=== PATIENT | male | born 1975 | race Hispanic/Latino ===

== ENCOUNTER 2018-12-31 17:59 | Observation (INO) | payer BC ==
[~2018-12-31] VITALS: Ht 153.7 cm; Wt 89.4 kg
[~2018-12-31 17:59] MED LIST: LOVASTATIN10 MG PO
[2018-12-31 19:06] LABS: HEMATOCRIT 45.9 % (38.2-49.6); HEMOGLOBIN 15.2 g/dL (14.0-18.0); RED BLOOD COUNT 5.27 x10e6/uL (4.3-5.7)
[2018-12-31 19:07] LABS: EOSINOPHILS % 0.3 % (0.0-6.0); LYMPHOCYTES % 2.6 % (18.0-39.1); MEAN CORPUSCULAR HEMOGLOBIN 28.8 pg (28-32); MEAN CORPUSCULAR HGB CONC 33.1 g/dL (31-35); MEAN CORPUSCULAR VOLUME 87.1 fL (81-99); MONOCYTES % 0.7 % (4.4-11.3); NEUTROPHILS % 4.7 % (38.7-80.0); PLATELET COUNT 246 x10e3/uL (140-360); RED CELL DISTRIBUTION WIDTH 12.4 % (11.7-14.4)
[2018-12-31 19:08] LABS: BILIRUBIN,URINE NEGATIVE (NEGATIVE); CLARITY,URINE CLEAR (CLEAR); COLOR,URINE YELLOW (YELLOW); KETONES,URINE NEGATIVE (NEGATIVE); LEUKOCYTE ESTERASE ,URINE NEGATIVE (NEGATIVE); NITRITE,URINE NEGATIVE (NEGATIVE); PROTEIN,URINE DIPSTICK NEGATIVE (NEGATIVE); URINE UROBILINOGEN 0.2 mg/dL (0.2 - 1)
[2018-12-31 19:18] LABS: INR 0.87; PARTIAL THROMBOPLASTIN TIME 32.3 seconds (23.8-35.5); PROTHROMBIN TIME 12.3 seconds (11.9-14.5)
[2018-12-31 19:19] LABS: EPITHELIAL CELLS,URINE RARE /LPF
[2018-12-31 19:23] LABS: BLOOD UREA NITROGEN 14 mg/dL (7-26); BUN/CREATININE RATIO 18 (6-25); CARBON DIOXIDE 27 mmol/L (22-29); CHLORIDE 100 mmol/L (98-107); CREATININE, SERUM 0.77 mg/dL (0.72-1.25); EST GLOMERULAR FILTRATION RATE > 60 ML/MIN (60-); GLUCOSE 103 mg/dL (74-118); SODIUM 141 mmol/L (136-145)
[2018-12-31 19:24] LABS: ALANINE AMINOTRANSFERASE 29 IU/L (0-55); ALBUMIN 4.2 g/dL (3.5-5.0); ALBUMIN/GLOBULIN RATIO 0.9 (0.8-2.0); ALKALINE PHOSPHATASE 82 IU/L (40-150)
--- NOTE | 2018-12-31 21:42 | Diagnostic Imaging Report ---
CT Abdomen And Pelvis with Intravenous Contrast INDICATION: Cholecystectomy 12/18/2018, abdominal pain ^AB PAIN POST OP CHOLEY TECHNIQUE: Thin collimation axial images obtained from the diaphragm to the level of the pubic symphysis following the uneventful administration of 100 cc of low osmolar, nonionic intravenous contrast. Dose reduction techniques used: Automated exposure control, adjustment of the mAs and/or kVp according to patient size, standardized low-dose protocol, and/or iterative reconstruction technique. RADIATION DOSE: Total DLP: 497.14 mGy*cm Estimated effective dose: (DLP x 0.015 x size factor) mSv CTDIvol has been reviewed. It is below the limits set by the Radiation Protocol Committee (RPC). COMPARISON: None. ABDOMEN FINDINGS: Lung Bases: Bibasilar subsegmental atelectasis. Punctate calcified granuloma in the posterior right lower lobe. No pleural effusions. Small hiatal hernia. Liver: Steatosis. No evidence for mass. Gallbladder: Absent. No fluid collection in the gallbladder fossa. No biliary ductal dilatation. Pancreas: Normal attenuation without mass or ductal dilatation. Spleen: Normal in size. No evidence of mass.. Adrenal Glands: No evidence for mass. Kidneys: Right: Normal enhancement. No soft tissue mass. No hydronephrosis. Left: Normal enhancement. No soft tissue mass. No hydronephrosis. Lymph Nodes: No enlarged abdominal or retroperitoneal lymph nodes. Aorta: Normal morphology PELVIS FINDINGS: Bowel: Stomach: Normal. Small Bowel: Several small bowel loops in the lower pelvis in the right lower quadrant contain semisolid enteric contents but are not dilated. The remainder of the small bowel is normal. Large Bowel: Normal in caliber with normal wall thickness. Appendix: Distended to a diameter of 11.5 mm. There is mild mucosal hyperemia. No surrounding inflammation or fluid collection. Bladder: Normal. No free fluid or fluid collection. No free air Bones: Unremarkable. Soft tissues: No soft tissue mass, inflammation, or hernia. Muscle bundles are normal in appearance. IMPRESSION: 1. Distended appendix suggestive of early acute appendicitis. Please correlate with clinical exam findings. No evidence of perforation. Semisolid enteric contents in adjacent small bowel loops may be the result of reactive ileus. 2. Cholecystectomy. Normal biliary tree. 3. Steatosis. Signed by: Dr. Gasper Hernandez MD on 12/31/2018 9:38 PM
[2018-12-31] MEDS ORDERED: PIPER-TAZ 3.375 GM 50 ML IV STA (22:06)
[2018-12-31] MEDS ORDERED: CEFTRIAXONE SOD 2 GM/NS 100 ML 100 ML IV ONE (22:15)
[2018-12-31] MEDS ORDERED: MORPHINE SULFATE 2 MG/ML SYR 1ML IV PRN (22:30)
[2018-12-31] MEDS ORDERED: CEFTRIAXONE SOD 2 GM/NS 100 ML 100 ML IV SCH ×2 (22:30→22:45)
--- OUTSIDE RECORDS SUMMARY | 2018-12-31 23:05 | XMS REPORT ---
Author Author [facility] Address Unknown Phone Unavailable Care Team Providers Care Sales Floor Team Member Name Role Phone Mukesh CALZADA Unavailable Unavailable Problems This patient has no known problems. Allergies, Adverse Reactions, Alerts This patient has no known allergies or adverse reactions. Medications This patient has no known medications. Results Test Description Test Time Test Comments Text Results Atomic Results Result Comments CT ABDOMEN/PELVIS W 2018-12-31 21:32:00 [place] [address] Patient Name: WILLIAM BOLDEN MR #: [id number] : 1975 Age/Sex: 43/M Req #: [id number] Adm Physician: Ordered by: SHRUTHI CALZADA MD Report #: [id number] Location: ER Room/Bed: Procedure: [id number] CT/CT ABDOMEN/PELVIS W Exam Date: Exam Time: REPORT STATUS: Signed CT Abdomen And Pelvis with Intravenous Contrast INDICATION: Cholecystectomy 12/18/2018, abdominal pain AB PAIN POST OP CHOLEY TECHNIQUE: Thin collimation axial images obtained from the diaphragm to the level of the pubic symphysis following the uneventful administration of 100 cc of low osmolar, nonionic intravenous contrast. Dose reduction techniques used: Automated exposure control, adjustment of the mAs and/or kVp according to patient size, standardized low-dose protocol, and/or iterative reconstruction technique. RADIATION DOSE: Total DLP: 497.14 mGy*cm Estimated effective dose: (DLP x 0.015 x size factor) mSv CTDIvol has been reviewed. It is below the limits set by the Radiation Protocol Committee (RPC). COMPARISON: None. ABDOMEN FINDINGS: Lung Bases: Bibasilar subsegmental atelectasis. Punctate calcified granuloma in the posterior right lower lobe. No pleural effusions. Small hiatal hernia. Liver: Steatosis. No evidence for mass. Gallbladder: Absent. No fluid col lection in the gallbladder fossa. No biliary ductal dilatation. Pancreas: Normal attenuation without mass or ductal dilatation. Spleen: Normal in size. No evidence of mass.. Adrenal Glands: No evidence for mass. Kidneys: Right: Normal enhancement. No soft tissue mass. No hydronephrosis. Left: Normal enhancement. No soft tissue mass. No hydronephrosis. Lymph Nodes: No enlarged abdominal or retroperitoneal lymph nodes. Aorta: Normal morphology PELVIS FINDINGS: Bowel: Stomach: Normal. Small Bowel: Several small bowel loops in the lower pelvis in the right lower quadrant contain semisolid enteric contents but are not dilated. The remainder of the small bowel is normal. Large Bowel: Normal in caliber with normal wall thickness. Appendix: Distended to a diameter of 11.5 mm. There is mild mucosal hyperemia. No surrounding inflammation or fluid collection. Bladder: Normal. No free fluid or fluid collection. No fr ee air Bones: Unremarkable. Soft tissues: No soft tissue mass, inflammation, or hernia. Muscle bundles are normal in appearance. IMPRESSION: 1. Distended appendix suggestive of early acute appendicitis. Please correlate with clinical exam findings. No evidence of perforation. Semisolid enteric contents in adjacent small bowel loops may be the result of reactive ileus. 2. Cholecystectomy. Normal biliary tree. 3. Steatosis. Signed by: Dr. Elizabeth Hernandez MD on 12/31/2018 9:38 PM Dictated By: ELIZABETH HERNANDEZ MD 37 Transcribed By: HILARIO on 12/31/182137 COPY TO: SHRUTHI CALZADA MD
[2018-12-31] MEDS ORDERED: MORPHINE SULFATE INJ 4 MG/ML INJ 1ML ONE (23:23)
[2018-12-31] MEDS ORDERED: SODIUM CHLORIDE 0.9% 100 ML ONE (23:23)
[2018-12-31] MEDS ORDERED: CEFTRIAXONE SOD 2 GM VIAL ONE (23:23)
[2018-12-31] MEDS: SODIUM CHLORIDE 0.9% 1000ML 1,000 ML IV SCH (23:28)
[2018-12-31] MEDS: ONDANSETRON HCL INJ 2MG/ML 2ML 2 MG/ML VIAL IV PRN (23:32)
[2018-12-31] MEDS: METRONIDAZOLE 500MG/NS 100ML IV SCH (23:50)
[2019-01-01] VITALS (9 sets, daily range): BP systolic 103–131; BP diastolic 70–79
[2019-01-01] MEDS ORDERED: IOPAMIDOL 370 MG/ML 200 ML INFUS..BTL INJ ONE (00:38)
[2019-01-01] MEDS ORDERED: SODIUM CHLORIDE 0.9% 50ML 50 ML ONE (00:38)
--- NOTE | 2019-01-01 01:20 | NUR ---
obtained consent form for appendectomy
[2019-01-01] MEDS: SODIUM CHLORIDE 0.9% 1000ML 1,000 ML IV SCH ×3 (05:22→22:36)
[2019-01-01] MEDS: METRONIDAZOLE 500MG/NS 100ML IV SCH ×3 (05:22→18:02)
--- NOTE | 2019-01-01 07:00 | NUR ---
RCD PT AT BED PT IS ALERT AND ORIENTED PT RESTING ON BED PT NPO FOR PROCEDURE BED LOW AND LOCKED CALL LIGHT IN REACH
[2019-01-01] MEDS ORDERED: MORPHINE SULFATE INJ 4 MG/ML INJ 1ML IV PRN (08:00)
[2019-01-01] MEDS: ONDANSETRON HCL INJ 2MG/ML 2ML 2 MG/ML VIAL IV PRN ×2 (08:05→19:57)
[2019-01-01] MEDS ORDERED: BUPIVACAINE 0.25%/EPI 30ML SDV INJ ONE (10:18)
--- NOTE | 2019-01-01 10:38 | NUR ---
PT WENT FOR PROCEDURE IN SAFE CONDITION
[2019-01-01] MEDS ORDERED: ONDANSETRON HCL INJ 2MG/ML 2ML 2 MG/ML VIAL ONE (14:01)
[2019-01-01] MEDS ORDERED: ROCURONIUM BROMIDE 10 MG/ML 5ML VIAL ONE (14:01)
[2019-01-01] MEDS ORDERED: SEVOFLURANE INHAL SOLN 250 ML PEN BTL ONE (14:01)
[2019-01-01] MEDS ORDERED: PROPOFOL IV EMULSION 10 MG/ML 20 ML VIAL ONE (14:01)
[2019-01-01] MEDS ORDERED: DEXAMETHASONE SOD PHOS INJ 4 MG/ML VIAL ONE (14:01)
[2019-01-01] MEDS ORDERED: LIDOCAINE HCL 2% JELLY 5 ML TUBE ONE (14:01)
[2019-01-01] MEDS ORDERED: LIDOCAINE HCL 2% LOCAL INJ 5 ML SDV VIAL INJ ONE (14:01)
[2019-01-01] MEDS ORDERED: MIDAZOLAM HCL 2 MG/2 ML VIAL ONE (14:14)
[2019-01-01] MEDS ORDERED: FENTANYL CITRATE/PF 100MCG/2 ML INJ ONE (14:14)
[2019-01-01] MEDS ORDERED: HYDROMORPHONE 1MG/1ML INJ IV PRN (15:00)
[2019-01-01] MEDS ORDERED: HYDROMORPHONE 2MG/ML 2 MG/ML ML IV PRN (15:15)
--- NOTE | 2019-01-01 15:21 | NUR ---
REPORT GIVEN TO SHERRY PATEL
[2019-01-01] MEDS ORDERED: HYDROMORPHONE 2MG/ML 2 MG/ML ML ONE (15:23)
--- NOTE | 2019-01-01 15:41 | NUR ---
RECEIVED REPORT FROM RECOVERY NURSE. WAITING FOR PATIENT AT THIS TIME.
--- NOTE | 2019-01-01 15:49 | NUR ---
RECEIVED PATIENT FROM RECOVERY. PATIENT A/O X3, EVEN RESPIRATIONS ON 2LNC. VITALS STABLE. ABDOMEN SOFT, BOWEL SOUNDS ACTIVE. ABDOMINAL DRESSING CLEAN, DRY, AND INTACT. SCD'S IN PLACE BILATERALLY. RIGHT AC 22 GAUGE IV WITH NS @ 125 CC/HR. NORCO GIVEN FOR PAIN 9/10 IN ABDOMEN. PATIENT ON CLEAR LIQUID DIET AT THIS TIME. CALL LIGHT IN REACH. EDUCATED PATIENT TO CALL FOR ASSISTANCE. NO SIGNS OF DISTRESS AT THIS TIME. FAMILY AT BEDSIDE WILL CONTINUE TO MONITOR.
[2019-01-01] MEDS: HYDROCODONE/APAP 7.5MG-325MG 1 EA TAB PO PRN (16:10)
[2019-01-01] MEDS: HYDROMORPHONE 2MG/ML 2 MG/ML ML IV PRN (19:58)
--- NOTE | 2019-01-01 20:30 | NUR ---
Assessment done.no resp.distress.pain medication given.abd.dressing is dry and intact.ambulates in the room.voided.sed is in place.head of bed elevated.bed locked and in lowest position.phone and call light within reach.instructed to call for assistance as needed.
[2019-01-01] MEDS: CEFTRIAXONE SOD 2 GM/NS 100 ML 100 ML IV SCH (22:36)
--- NOTE | 2019-01-01 22:38 | Operative Report ---
DATE OF PROCEDURE: 01/01/2019 SURGEON: Oseas Reyes MD PREOPERATIVE DIAGNOSIS: Acute appendicitis. POSTOPERATIVE DIAGNOSIS: Acute appendicitis. PROCEDURE PERFORMED: Laparoscopic appendectomy. ANESTHESIA: General endotracheal. APPLICATIONS SUPPORT ENGINEER: Aracely Richards, licensed operating room surgical technologist. ESTIMATED BLOOD LOSS: Minimal. DRAINS: None. COMPLICATIONS: None. INDICATION AND FINDINGS: The patient is a 43-year-old male, who 2 weeks ago underwent laparoscopic cholecystectomy for gallbladder polyp and who subsequently 3 days ago started having abdominal pain. The patient presented to the emergency room where CT scan revealed changes consistent with acute early appendicitis. INTRAOPERATIVE FINDINGS: Acute appendicitis, catarrhal phase. The small bowel was run several feet backwards, no evidence of Meckel's diverticulitis or any other type of abnormality was seen. The omentum was examined and there was no evidence of torsion. The cecum was soft and pliable. The abdominal wall did not reveal any evidence of hematoma. DESCRIPTION OF PROCEDURE: With the patient lying on the operative table in the supine position and after administration of general anesthesia, he was prepped and draped for laparoscopic cholecystectomy. The procedure was begun by establishing pneumoperitoneum in the right upper quadrant midclavicular line because of the previous recent laparoscopic cholecystectomy and pneumoperitoneum was insufflated to 15 mmHg of pressure without any difficulties. Then, we placed a 5-mm trocar and the camera introduced. Umbilical site was free of any adhesions and then we placed a 12 trocar there. Finally, we placed a 5-mm trocar in the right lower quadrant. Then, we inspected the abdomen. We identified the appendix easily, which was rather long and going into the pelvis. It appeared to be inflamed with early appendicitis type of pathology. We went ahead and mobilized the appendix transected. I made a rent in the mesoappendix and then transected the mesoappendix with 2 firings of the EndoGIA with a white load and then we fired the EndoGIA with a blue load and completed the appendectomy, placed the appendix in an endobag and removed through the umbilical port. At this point, then we performed diagnostic laparoscopy as previously described with the findings previously described. At this point, then we after having extracted appendix with an endobag, irrigated the abdomen and then we closed the wound using #0 Vicryl for the umbilical fascia, 3-0 Vicryl for the subcutaneous tissue in that location. The skin of all the ports was closed using bryan. 0.25% Marcaine with epinephrine was given as local block at the end of the case. The patient tolerated the procedure well and taken to recovery room in stable condition. MD AHSAN Mccord/LEEANNE /[id number]
[2019-01-02] VITALS (7 sets, daily range): BP systolic 98–120; BP diastolic 54–70
[2019-01-02] MEDS: ONDANSETRON HCL INJ 2MG/ML 2ML 2 MG/ML VIAL IV PRN ×2 (00:29→07:05)
[2019-01-02] MEDS: METRONIDAZOLE 500MG/NS 100ML IV SCH ×5 (00:29→23:28)
[2019-01-02] MEDS: HYDROCODONE/APAP 7.5MG-325MG 1 EA TAB PO PRN ×3 (00:33→23:51)
[2019-01-02] MEDS: HYDROMORPHONE 2MG/ML 2 MG/ML ML IV PRN ×4 (03:11→15:26)
--- NOTE | 2019-01-02 04:00 | NUR ---
Assisted the pt to use bath room.voided.pt is back to bed safely.
[2019-01-02 05:59] LABS: BASOPHILS % 0.2 % (0.0-1.0); EOSINOPHILS % 0.1 % (0.0-6.0); HEMATOCRIT 41.2 % (38.2-49.6); HEMOGLOBIN 13.6 g/dL (14.0-18.0); LYMPHOCYTES # (AUTO) 1.4 (1.0-3.2); LYMPHOCYTES % 11.9 % (18.0-39.1); MEAN CORPUSCULAR HEMOGLOBIN 28.6 pg (28-32); MEAN CORPUSCULAR VOLUME 86.6 fL (81-99); MONOCYTES # (AUTO) 0.7 (0.2-0.8); MONOCYTES % 5.5 % (4.4-11.3); NEUTROPHILS # (AUTO) 9.7 (2.1-6.9); NEUTROPHILS % 81.9 % (38.7-80.0); PLATELET COUNT 244 x10e3/uL (140-360); RED BLOOD COUNT 4.76 x10e6/uL (4.3-5.7); RED CELL DISTRIBUTION WIDTH 12.2 % (11.7-14.4)
[2019-01-02 06:15] LABS: ANION GAP 13.1 mmol/L (8-16); BLOOD UREA NITROGEN 7 mg/dL (7-26); BUN/CREATININE RATIO 10 (6-25); CARBON DIOXIDE 23 mmol/L (22-29); CHLORIDE 103 mmol/L (98-107); CREATININE, SERUM 0.71 mg/dL (0.72-1.25); EST GLOMERULAR FILTRATION RATE > 60 ML/MIN (60-); GLUCOSE 120 mg/dL (74-118); POTASSIUM 4.1 mmol/L (3.5-5.1); SODIUM 135 mmol/L (136-145)
[2019-01-02] MEDS: SODIUM CHLORIDE 0.9% 1000ML 1,000 ML IV SCH ×3 (06:19→22:55)
--- NOTE | 2019-01-02 06:50 | NUR ---
Encouraged to ambulate.report given to the oncoming rn.walking rounds done.stable condition.
--- NOTE | 2019-01-02 07:22 | NUR ---
RECEIVED PATIENT AWAKE RESTING IN BED, NO SIGNS OF DISTRESS AT THIS TIME. CALL LIGHT IN REACH. WILL CONTINUE TO MONITOR.
--- NOTE | 2019-01-02 09:05 | NUR ---
PATIENT A/O X3, EVEN RESPIRATIONS ON RA. BOWEL SOUNDS HYPOACTIVE. ABDOMINAL DRESSING CLEAN, DRY, AND INTACT. SCD'S IN PLACE. PATIENT AMBULATORY WITH STANDBY ASSIST. RIGHT AC 20 GAUGE IV WITH NS @ 125 CC/HR. VITALS STABLE, CALL LIGHT IN REACH WILL CONTINUE TO MONITOR.
[2019-01-02] MEDS ORDERED: BISACODYL 10 MG SUPP PR NR (13:00)
[2019-01-02] MEDS ORDERED: MAGNESIUM HYDROXIDE 30 ML UDC PO NR ×2 (13:00→19:00)
[2019-01-02] MEDS: METOCLOPRAMIDE HCL 10 MG/2ML VIAL IV SCH ×2 (17:34→23:28)
--- NOTE | 2019-01-02 19:10 | NUR ---
Report taken from am rn.walking rounds done.iv right ac is infilterated.removed.iv cannula is intact.abd pain voiced 05/25.pain medicine given.encouraged to ambulate in the [address].no pass gas.dressing site is dry.abd.binder is in place.
--- NOTE | 2019-01-02 22:30 | NUR ---
New iv started @ left f.arm #22 g.patent .ambulated in the [address].no pass gas.
[2019-01-02] MEDS: CEFTRIAXONE SOD 2 GM/NS 100 ML 100 ML IV SCH (22:55)
[2019-01-03] VITALS: BP 130/76
--- NOTE | 2019-01-03 03:00 | NUR ---
Had bowelmovement.pain medicine given.keep monitor the pt.
[2019-01-03 04:00] VITALS: BP 127/70
[2019-01-03] MEDS: HYDROCODONE/APAP 7.5MG-325MG 1 EA TAB PO PRN ×3 (04:30→13:33)
[2019-01-03] MEDS: METRONIDAZOLE 500MG/NS 100ML IV SCH ×2 (05:15→12:51)
[2019-01-03] MEDS: METOCLOPRAMIDE HCL 10 MG/2ML VIAL IV SCH ×2 (05:15→12:39)
[2019-01-03] MEDS: SODIUM CHLORIDE 0.9% 1000ML 1,000 ML IV SCH (05:15)
--- NOTE | 2019-01-03 06:50 | NUR ---
Report given to the oncoming rn.walking rounds done.stable condition.
[2019-01-03 07:28] VITALS: BP 131/75
--- NOTE | 2019-01-03 07:44 | NUR ---
RECEIVED PATIENT AWAKE RESTING IN BED NO SIGNS OF DISTRESS. CALL LIGHT IN REACH WILL CONTINUE TO MONITOR.
[2019-01-03 10:54] VITALS: BP 131/75
[2019-01-03 11:19] VITALS: BP 131/75
[2019-01-03] MEDS ORDERED: CEFTRIAXONE SOD 1 GM/NS 50 ML 50 ML IV ONE (11:30)
--- NOTE | 2019-01-03 11:55 | Discharge Summary ---
FINAL DIAGNOSIS: Acute appendicitis status post laparoscopic cholecystectomy. HISTORY OF PRESENT ILLNESS AND HOSPITALIZATION COURSE: The patient is a 43-year-old male, who had undergone exactly two weeks the day of admission laparoscopic cholecystectomy for gallbladder polyp, was discharged home. Postoperative course was unremarkable. The patient now presents through the emergency room with right lower quadrant pain. CT scan revealed acute appendicitis. The patient was taken to the operating room and underwent laparoscopic appendectomy uneventfully on 01/01/2019. Findings were acute early appendicitis. POSTOPERATIVE COURSE: The patient complained of some abdominal pain, distention, constipation. He was given laxative and had a bowel movement. The patient was discharged home in stable condition on 01/03/2019. He was given Tylenol #3 p.r.n. for pain #40 and he was taking regular diet well. He was instructed not to do any lifting and follow up in my office 10 days following discharge. MD AHSAN Mccord/LEEANNE /[id number]
[2019-01-03] MEDS ORDERED: TYLENOL WITH C1 EACH PO (12:28)
--- NOTE | 2019-01-03 13:56 | NUR ---
REMOVED PATIENTS IV. CATHETER TIP INTACT AND PRESSURE DRESSING APPLIED.
--- NOTE | 2019-01-03 14:04 | NUR ---
PATIENT DISCHARGED FROM FACILITY. PATIENT GATHERED ALL PERSONAL BELONGINGS, DISCHARGE INSTRUCTIONS, FOLLOW UP INFORMATION, AND PRESCRIPTIONS. PATIENT LEFT UNIT IN WHEELCHAIR AND WENT HOME VIA PRIVATE AUTO. NO SIGNS OF DISTRESS WHEN LEAVING FACILITY.
== END 2019-01-03 14:04 | disposition home or self-care (01) ==
LOC: ER 17:59 → ERHOLD 23:02 → MED/SURG2 01-01 00:04 → MED/SURG 01-01 14:31
PROVIDERS: ADMIT Surgery; ATTEND Surgery
DX: K35.80 Unspecified acute appendicitis (principal)
CPT/HCPCS: 36415 ×2; 44970; 74177; 80048; 80053; 81001; 85025 ×2; 85610; 85730; 88304; 99284; C1766; G0378 ×4; J0696 ×4; J1100; J1170 ×2; J2001 ×2; J2250; J2270 ×2; J2405 ×3; J2704; J2765 ×2; J7030 ×3; J7050; Q9967

== ENCOUNTER 2019-01-10 21:18 | Inpatient (IN) | payer BC ==
[~2019-01-10] VITALS: Ht 165.1 cm; Wt 84.4 kg
[~2019-01-10 21:18] MED LIST changes: +TYLENOL WITH C1 EACH PO
[2019-01-10] MEDS ORDERED: ACETAMINOPHEN 1000 MG/100 ML IV STA (21:41)
[2019-01-10] MEDS ORDERED: SODIUM CHLORIDE 0.9% 1000ML 1,000 ML IV ONE ×3 (21:45→23:45)
[2019-01-10 22:22] LABS: BASOPHILS % 0.1 % (0.0-1.0); HEMATOCRIT 42.4 % (38.2-49.6); HEMOGLOBIN 14.7 g/dL (14.0-18.0); LYMPHOCYTES # (AUTO) 0.8 (1.0-3.2); LYMPHOCYTES % 3.9 % (18.0-39.1); MEAN CORPUSCULAR HEMOGLOBIN 29.1 pg (28-32); MEAN CORPUSCULAR HGB CONC 34.7 g/dL (31-35); MEAN CORPUSCULAR VOLUME 83.8 fL (81-99); MONOCYTES # (AUTO) 1.2 (0.2-0.8); MONOCYTES % 5.9 % (4.4-11.3); NEUTROPHILS # (AUTO) 18.4 (2.1-6.9); NEUTROPHILS % 89.6 % (38.7-80.0); PLATELET COUNT 267 x10e3/uL (140-360); RED BLOOD COUNT 5.06 x10e6/uL (4.3-5.7)
[2019-01-10 22:28] LABS: CLARITY,URINE HAZY (CLEAR); COLOR,URINE YELLOW (YELLOW)
[2019-01-10 22:29] LABS: BILIRUBIN,URINE NEGATIVE (NEGATIVE); KETONES,URINE NEGATIVE (NEGATIVE); LEUKOCYTE ESTERASE ,URINE NEGATIVE (NEGATIVE); NITRITE,URINE NEGATIVE (NEGATIVE); PROTEIN,URINE DIPSTICK 1+ (NEGATIVE); URINE UROBILINOGEN 0.2 mg/dL (0.2 - 1)
[2019-01-10 22:36] LABS: EPITHELIAL CELLS,URINE FEW /LPF; MUCUS,URINE MODERATE (RARE); RBC,URINE 0-5 /HPF (0-5); WBC,URINE (MAN) 0-5 /HPF (0-5)
[2019-01-10 22:40] LABS: ALANINE AMINOTRANSFERASE 57 IU/L (0-55); ALBUMIN 4.2 g/dL (3.5-5.0); ALBUMIN/GLOBULIN RATIO 1.1 (0.8-2.0); ALKALINE PHOSPHATASE 72 IU/L (40-150); AMYLASE 30 U/L (25-125); ANION GAP 17.7 mmol/L (8-16); BLOOD UREA NITROGEN 11 mg/dL (7-26); BUN/CREATININE RATIO 13 (6-25); CALCIUM 9.8 mg/dL (8.4-10.2); CARBON DIOXIDE 22 mmol/L (22-29); CHLORIDE 99 mmol/L (98-107); CREATININE, SERUM 0.86 mg/dL (0.72-1.25); EST GLOMERULAR FILTRATION RATE > 60 ML/MIN (60-); GLUCOSE 150 mg/dL (74-118); LIPASE 16 U/L (8-78); POTASSIUM 3.7 mmol/L (3.5-5.1); SODIUM 135 mmol/L (136-145)
[2019-01-10] MEDS ORDERED: METRONIDAZOLE 500MG/NS 100ML 100 ML IV STA (22:47)
[2019-01-10] MEDS ORDERED: PIPER-TAZ 3.375 GM 50 ML IV STA (22:47)
[2019-01-10] MEDS ORDERED: SODIUM CHLORIDE 0.9% 50ML 50 ML ONE (23:01)
[2019-01-10] MEDS ORDERED: IOPAMIDOL 370 MG/ML 200 ML INFUS..BTL INJ ONE (23:02)
--- NOTE | 2019-01-10 23:26 | Diagnostic Imaging Report ---
EXAMINATION: CHEST SINGLE (PORTABLE) INDICATION: ^ABDOMIMAL PAIN AND FEVER, RECENT CHOLECYSTECTOMY AND APPEN ^[id number] ^2205 ^Y COMPARISON: None FINDINGS: TUBES and LINES: None. LUNGS: Lungs are well inflated. Right basilar linear atelectasis. There is no evidence of pneumonia or pulmonary edema. PLEURA: No pleural effusion or pneumothorax. HEART AND MEDIASTINUM: The cardiomediastinal silhouette is unremarkable. BONES AND SOFT TISSUES: No acute osseous lesion. Soft tissues are unremarkable. UPPER ABDOMEN: Lucency beneath the left hemidiaphragm may be within the gastric lumen. IMPRESSION: Right basilar linear atelectasis. Signed by: Dr. Lucila Romero M.D. on 01/10/2019 11:23 PM
[2019-01-10] MEDS ORDERED: HYDROMORPHONE 2MG/ML 2 MG/ML ML IV ONE (23:45)
[2019-01-11] VITALS (24 sets, daily range): BP systolic 87–128; BP diastolic 58–82
[2019-01-11] MEDS ORDERED: IBUPROFEN 400 MG TAB PO ONE (01:00)
--- NOTE | 2019-01-11 01:04 | Diagnostic Imaging Report ---
EXAMINATION: CHEST SINGLE (PORTABLE) INDICATION: Pain and fever. COMPARISON: 01/10/2019 and 2202 hours. FINDINGS: TUBES and LINES: None. LUNGS: Lungs are well inflated. Left basilar linear atelectasis. There is no evidence of pneumonia or pulmonary edema. PLEURA: No pleural effusion or pneumothorax. HEART AND MEDIASTINUM: The cardiomediastinal silhouette is unremarkable. BONES AND SOFT TISSUES: No acute osseous lesion. Soft tissues are unremarkable. UPPER ABDOMEN: No abnormality. IMPRESSION: Left basilar linear atelectasis. Signed by: Dr. Lucila Romero M.D. on 01/11/2019 1:00 AM
--- NOTE | 2019-01-11 01:25 | Diagnostic Imaging Report ---
EXAM: CT Abdomen and Pelvis WITH contrast INDICATION: Severe abdominal pain, fever. Nausea. Recent appendectomy and cholecystectomy. COMPARISON: 12/31/2018. TECHNIQUE: Abdomen and pelvis were scanned utilizing a multidetector helical scanner from the lung base to the pubic symphysis after administration of IV contrast. Coronal and sagittal reformations were obtained. Routine protocol was performed. Scan was performed when during portal venous phase. IV CONTRAST: 99 cc of Isovue 300 ORAL CONTRAST: None. RADIATION DOSE: Total DLP: 467.13 mGy*cm Estimated effective dose: (DLP x 0.015 x size factor) mSv COMPLICATIONS: None FINDINGS: LINES and TUBES: None. LOWER THORAX: Bibasilar dependent atelectasis. HEPATOBILIARY: Mild diffuse low-attenuation of the hepatic parenchyma may reflect steatosis. No focal hepatic lesions. No biliary ductal dilation. GALLBLADDER: Surgically absent. SPLEEN: No splenomegaly. PANCREAS: No focal masses or ductal dilatation. ADRENALS: No adrenal nodules KIDNEYS/URETERS: Kidneys enhance symmetrically. No hydronephrosis. No cystic or solid mass lesions. No stones. GI TRACT: No bowel dilatation to suggest obstruction. Mild wall thickening of the descending colon associated with mild prominence of the vasa recta is nonspecific, possibly reflecting mild colitis in the proper clinical setting. Mild wall thickening of the cecum without associated surrounding inflammatory changes may be related to underdistention. The appendix is surgically absent. No periappendiceal fluid collections. PELVIC ORGANS/BLADDER: The prostate is mildly enlarged measuring 5.2 cm in transverse dimension. LYMPH NODES: No lymphadenopathy. Mildly prominent right lower quadrant lymph nodes are nonspecific, possibly mild reactive lymphadenopathy. VESSELS: Unremarkable. PERITONEUM / RETROPERITONEUM: No free air or fluid. BONES: Unremarkable. SOFT TISSUES: Tiny fat-containing umbilical hernia. IMPRESSION: 1. Interval appendectomy. No periappendiceal fluid collections. The fluid collections within peritoneal cavity to suggest abscess formation. No drainable fluid collections. 2. Mild wall thickening of the descending colon associated with mild prominence of the vasa recta may represent colitis in the proper clinical setting. 3. Mild nodular wall thickening of the cecum may be related to underdistention. Mild cecal inflammation is within differential given patient's symptomatology. 4. Status post post cholecystectomy. No significant biliary dilatation. Discussed with Dr. Greenfield from the ER at 2334 hours on 01/10/2019. Signed by: Dr. Lucila Romero M.D. on 01/11/2019 1:22 AM
[2019-01-11] MEDS ORDERED: SODIUM CHLORIDE 0.9% 1000ML 1,000 ML IV ONE ×2 (01:45)
[2019-01-11] MEDS ORDERED: SODIUM CHLORIDE 0.9% 1000ML 2,000 ML ONE (01:48)
[2019-01-11] MEDS ORDERED: SODIUM CHLORIDE 0.9% 1000ML 1,000 ML ONE (01:50)
[2019-01-11] MEDS ORDERED: ONDANSETRON HCL INJ 2MG/ML 2ML 2 MG/ML VIAL IV PRN (02:15)
[2019-01-11] MEDS: VANCOMYCIN 250MG/5ML ORAL SOLN PO SCH ×5 (03:14→23:52)
[2019-01-11] MEDS: SODIUM CHLORIDE 0.9% 1000ML 1,000 ML IV SCH ×6 (03:14→23:28)
--- NOTE | 2019-01-11 05:12 | Diagnostic Imaging Report ---
EXAMINATION: CHEST XRAY LINE PLACEMENT INDICATION: PICC Line Placement COMPARISON: 01/10/19 at 2347 hours. FINDINGS: TUBES and LINES: Right upper extremity PICC has been placed with distal tip projected on the mid SVC. LUNGS: Lungs are well inflated. Right basilar linear atelectasis. There is no evidence of pneumonia or pulmonary edema. PLEURA: No pleural effusion or pneumothorax. HEART AND MEDIASTINUM: The cardiomediastinal silhouette is unremarkable. BONES AND SOFT TISSUES: No acute osseous lesion. Soft tissues are unremarkable. UPPER ABDOMEN: No free air under the diaphragm. IMPRESSION: Right upper extremity PICC has been placed with distal tip projected on the mid SVC. Signed by: Dr. Lucila Romero M.D. on 01/11/2019 5:08 AM
[2019-01-11] MEDS ORDERED: PIPER-TAZ 3.375 GM / NS 50ML IV SCH (06:00)
[2019-01-11] MEDS: METRONIDAZOLE 500MG/NS 100ML 100 ML IV SCH ×4 (06:00→23:39)
[2019-01-11] MEDS: ACETAMINOPHEN 1000 MG/100 ML IV PRN ×2 (06:43→20:05)
[2019-01-11] MEDS: IBUPROFEN 600 MG TAB PO PRN (12:10)
[2019-01-11] MEDS: CEFEPIME 1GM/NS 0.9% 50 ML 50 ML IV SCH ×2 (13:30→22:36)
[2019-01-11] MEDS ORDERED: CEFEPIME HCL 1 GM VIAL IV SCH (14:00)
--- NOTE | 2019-01-11 15:52 | NUR ---
nursing report given to Jhon PATELsurgical brace maker 2. patient to be transferred to room 204
--- NOTE | 2019-01-11 16:20 | NUR ---
PT RECEIVED FROM ICU VIA WHEEL CHAIR. AAOX4. BED AT LOWEST POSITION, CALL LIGHT WITH IN REACH. PT DENIES NEEDS AT THIS TIME.
--- NOTE | 2019-01-11 19:00 | NUR ---
BEDSIDE REPORT GIVEN TO BOTTLE WASHER RN
--- NOTE | 2019-01-11 19:15 | Consultation ---
DATE OF CONSULTATION: REASON FOR ADMISSION: Fever, chills, diarrhea, and sepsis. HISTORY OF PRESENT ILLNESS: This patient who is a 43-year-old male, who comes here with fever, chills, and not feeling well, started three days ago, severe diarrhea. He goes almost like every 15 minutes, came to emergency room. In the emergency room, he was tachycardic. Blood pressure is in 90s, started IV fluids and IV antibiotic. He is being admitted currently in the intensive care unit, but he is feeling better since he came here. He said he is still having bad diarrhea. PAST MEDICAL HISTORY: Denies. PAST SURGICAL HISTORY: He had cholecystectomy recently as well as appendectomy. The patient was here and had appendectomy on January 01 and he had cholecystectomy on December 18 apparently for abdominal pain and now he is presenting with diarrhea as mentioned above. PAST MEDICAL HISTORY: Denies. PAST SURGICAL HISTORY: As above. ALLERGIES: NKDA. SOCIAL HISTORY: He denies smoking, drug abuse, or alcohol abuse. Not . 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 LABORATORY DATA: Reviewed. White count 20.6 and hemoglobin 14.7. His sodium 135, potassium 3.7, creatinine 0.8, and glucose 150. Lactic acid 35. Culture is still pending. REVIEW OF SYSTEMS: Besides the diarrhea and abdominal pain, not feeling well. He denies any. MEDICATION LIST: Reviewed. He has been Flagyl, oral vancomycin, and Zosyn. PHYSICAL EXAMINATION: GENERAL: He is currently alert and oriented, does not seem to be in acute distress. VITAL SIGNS: Stable. Currently afebrile, heart rate 107, respirations 22, and blood pressure 104/67. HEENT: He is not icteric. NECK: Supple. CHEST: Clear. HEART: S1, S2. No murmur. ABDOMEN: Soft. Bowel sounds present. No tenderness. EXTREMITIES: No edema. SKIN: No rash. IMPRESSION AND PLAN: 1. Sepsis on admission, seemed to be resolving. 2. Diarrhea, abdominal pain, fever, chills, and colitis, etiology could be Clostridium difficile versus other such as salmonella, etc., or other stool pathogen. I would recommend to obtain stool for stool pathogens, stools for C difficile. I ordered vancomycin, cefepime and Flagyl. Recheck CBC. Recheck chemistry panel. Agree with IV fluids. The patient can leave ICU. 3. Diabetes mellitus. Recheck fasting glucoses. 4. Status post appendectomy and status post cholecystectomy. 5. We will follow. Further recommendations pending on clinical progress. MD EM Davis/MODL /[id number]
[2019-01-12] VITALS (7 sets, daily range): BP systolic 103–123; BP diastolic 60–79
[2019-01-12] MEDS: IBUPROFEN 600 MG TAB PO PRN (03:58)
[2019-01-12] MEDS: VANCOMYCIN 250MG/5ML ORAL SOLN PO SCH ×3 (05:27→18:42)
[2019-01-12] MEDS: CEFEPIME 1GM/NS 0.9% 50 ML 50 ML IV SCH ×2 (06:00→14:27)
--- NOTE | 2019-01-12 06:00 | NUR ---
Patient c/o numbness and discomfort to R arm. Noted swelling non pitting to R arm. Paged Dr. Krishna Reyes.
[2019-01-12] MEDS: SODIUM CHLORIDE 0.9% 1000ML 1,000 ML IV SCH (06:08)
--- NOTE | 2019-01-12 06:45 | NUR ---
Spoke with Dr. Krishna Reyes. Orders Received - d/c picc line, order HIV panel, apply warm compress.
--- NOTE | 2019-01-12 07:00 | NUR ---
BEDSIDE SHIFT REPORT RECEIVED FROM MEME PATEL. PT DENIES NEEDS AT THIS TIME.
--- NOTE | 2019-01-12 08:00 | NUR ---
SWELLING GONE TO RIGHT ARM AND PICC LINE DRAWING WELL ON ALL 3 LUMENS. PT STATES NO DISCOMFORT. SITE LOOKS C/D/I WITH NO REDNESS NOTED TO PICC SITE. TALKED TO DR. HAIRSTON. ORDER TO DC PICC LINE CANCELLED AND IV FLUIDS SLOWED TO 100 ML/HR.
[2019-01-12 08:56] LABS: BASOPHILS % 0.1 % (0.0-1.0); EOSINOPHILS # (AUTO) 0.2 (0.0-0.4); EOSINOPHILS % 2.2 % (0.0-6.0); HEMATOCRIT 34.5 % (38.2-49.6); HEMOGLOBIN 11.6 g/dL (14.0-18.0); LYMPHOCYTES # (AUTO) 1.1 (1.0-3.2); LYMPHOCYTES % 10.2 % (18.0-39.1); MEAN CORPUSCULAR HEMOGLOBIN 28.9 pg (28-32); MEAN CORPUSCULAR HGB CONC 33.6 g/dL (31-35); MONOCYTES # (AUTO) 0.8 (0.2-0.8); NEUTROPHILS % 80.2 % (38.7-80.0); PLATELET COUNT 176 x10e3/uL (140-360); RED BLOOD COUNT 4.01 x10e6/uL (4.3-5.7); RED CELL DISTRIBUTION WIDTH 13.4 % (11.7-14.4)
[2019-01-12] MEDS: METRONIDAZOLE 500MG/NS 100ML 100 ML IV SCH ×3 (09:11→18:42)
[2019-01-12 09:14] LABS: ALANINE AMINOTRANSFERASE 38 IU/L (0-55); ALBUMIN 2.9 g/dL (3.5-5.0); ALBUMIN/GLOBULIN RATIO 0.9 (0.8-2.0); ALKALINE PHOSPHATASE 57 IU/L (40-150); ANION GAP 8.9 mmol/L (8-16); BLOOD UREA NITROGEN < 5 mg/dL (7-26); CALCIUM 8.3 mg/dL (8.4-10.2); CARBON DIOXIDE 24 mmol/L (22-29); CHLORIDE 106 mmol/L (98-107); CREATININE, SERUM 0.67 mg/dL (0.72-1.25); EST GLOMERULAR FILTRATION RATE > 60 ML/MIN (60-); GLUCOSE 167 mg/dL (74-118); SODIUM 136 mmol/L (136-145)
[2019-01-12 09:19] LABS: BUN/CREATININE RATIO 7 (6-25)
[2019-01-12 09:20] LABS: POTASSIUM 2.9 mmol/L (3.5-5.1)
[2019-01-12 10:38] LABS: HIV 1&2 AB SCREEN NON-REACTIVE (NONREACTIVE)
[2019-01-12] MEDS: KCL 20MEQ/.9 SOD CHL 1,000 ML IV SCH ×2 (10:53→21:26)
[2019-01-12] MEDS ORDERED: POTASSIUM CHLORIDE 20 MEQ TAB CR PO NR ×3 (11:00→22:00)
[2019-01-12] MEDS ORDERED: POTASSIUM CHLORIDE 20 MEQ TAB CR PO SCH ×2 (13:00→15:00)
[2019-01-12] MEDS ORDERED: ONDANSETRON HCL 4 MG ORAL DISINTEGRATING TAB PO PRN (14:45)
[2019-01-12] MEDS ORDERED: CHOLESTYRAMINE 4 GM PACKET PO PRN (16:15)
--- NOTE | 2019-01-12 18:50 | NUR ---
PT POTASSIUM LEVEL IS 3.1. INFORMED DR. HAIRSTON OFFICE
--- NOTE | 2019-01-12 19:00 | NUR ---
BEDSIDE SHIFT REPORT GIVEN TO COBBLER SOLE RN. PT DENIES NEEDS AT THIS TIME.
[2019-01-13] VITALS (9 sets, daily range): BP systolic 106–124; BP diastolic 51–74
[2019-01-13] MEDS: VANCOMYCIN 250MG/5ML ORAL SOLN PO SCH ×5 (00:22→23:53)
[2019-01-13] MEDS: METRONIDAZOLE 500MG/NS 100ML 100 ML IV SCH ×5 (00:22→23:53)
--- NOTE | 2019-01-13 03:02 | NUR ---
01/12/19:Received patient lying in bed, patient is alert, introduced self to patient, safety and fall precautions maintained as per hospital protocol: bed in lowest position and locked, needed items beside bed and call ramirez placed close to patient, patient instructed to use it to call nurses for any assistance needed, patient verbalized understanding. patient is currently stable, will continue to monitor.
[2019-01-13] MEDS: KCL 20MEQ/.9 SOD CHL 1,000 ML IV SCH ×3 (05:42→23:54)
[2019-01-13 05:58] LABS: ANION GAP 11.4 mmol/L (8-16); BLOOD UREA NITROGEN < 5 mg/dL (7-26); CALCIUM 8.7 mg/dL (8.4-10.2); CARBON DIOXIDE 24 mmol/L (22-29); CHLORIDE 106 mmol/L (98-107); CREATININE, SERUM 0.61 mg/dL (0.72-1.25); EST GLOMERULAR FILTRATION RATE > 60 ML/MIN (60-); GLUCOSE 86 mg/dL (74-118); POTASSIUM 3.4 mmol/L (3.5-5.1); SODIUM 138 mmol/L (136-145)
[2019-01-13 05:59] LABS: BUN/CREATININE RATIO 8 (6-25)
--- NOTE | 2019-01-13 06:55 | NUR ---
patient endorsed to next shift for continuity of care.
[2019-01-13] MEDS ORDERED: POTASSIUM CHLORIDE 20 MEQ TAB CR PO NR ×3 (11:30→17:00)
--- NOTE | 2019-01-13 13:10 | NUR ---
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 CM/SW role and care transitions discussed. Anticipated discharge plan discussed along with duration of care. CM/SW discussed patients right to make decisions in care. CM/SW work hours given. Patient lives: with his friend Admit/Transfer: thru ED Hospital/ER visits since last admit: 0; was last here in obs January 01 for appendicitis Pt states he did not follow up with MD after discharge. Had an appointment made but had a fever the day before the appointment so he came to the ED. POA/Emergency contact: rosalbaer Melissa Talamantes [phone] Current/Previous Home Health: none PCP/Follow-up Care: will follow up with Dr. Krishna Reyes after discharge as instructed Current/Previous DME: none Medications (referring to index hospitalization or the first time you were in the hospital) a. Were changes made in your medications when you were in the hospital on January 012018? no b. Did you understand the changes? n/a c. Were you able to obtain your new medications right away? n/a d. Were you able to take your medications like the doctor wanted you to? n/a e. Did the hospital give you an accurate, easy to understand list of medications when you left? 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 CM/SW left business card at the bedside with contact information. Name and number was also written on the patients whiteboard. Patient verbalized understanding of discussion. CM will follow-up with ongoing discharge and transition of care needs.
[2019-01-13] MEDS ORDERED: DICYCLOMINE HCL 20 MG TAB PO NR (14:00)
[2019-01-13] MEDS: DICYCLOMINE HCL 20 MG TAB PO SCH ×2 (17:08→20:58)
[2019-01-14] VITALS (7 sets, daily range): BP systolic 102–121; BP diastolic 59–67
[2019-01-14] MEDS: VANCOMYCIN 250MG/5ML ORAL SOLN PO SCH ×4 (05:36→23:30)
[2019-01-14] MEDS: METRONIDAZOLE 500MG/NS 100ML 100 ML IV SCH ×4 (05:36→23:30)
[2019-01-14 05:38] LABS: BASOPHILS % 0.3 % (0.0-1.0); EOSINOPHILS # (AUTO) 0.3 (0.0-0.4); EOSINOPHILS % 4.8 % (0.0-6.0); HEMATOCRIT 36.1 % (38.2-49.6); HEMOGLOBIN 11.9 g/dL (14.0-18.0); LYMPHOCYTES # (AUTO) 1.8 (1.0-3.2); LYMPHOCYTES % 28.8 % (18.0-39.1); MEAN CORPUSCULAR HEMOGLOBIN 28.6 pg (28-32); MEAN CORPUSCULAR VOLUME 86.8 fL (81-99); MONOCYTES # (AUTO) 0.6 (0.2-0.8); MONOCYTES % 10.5 % (4.4-11.3); NEUTROPHILS # (AUTO) 3.4 (2.1-6.9); NEUTROPHILS % 55.1 % (38.7-80.0); PLATELET COUNT 249 x10e3/uL (140-360); RED BLOOD COUNT 4.16 x10e6/uL (4.3-5.7); RED CELL DISTRIBUTION WIDTH 13.5 % (11.7-14.4)
[2019-01-14 06:08] LABS: ANION GAP 10.2 mmol/L (8-16); BLOOD UREA NITROGEN < 5 mg/dL (7-26); CALCIUM 9.1 mg/dL (8.4-10.2); CARBON DIOXIDE 25 mmol/L (22-29); CHLORIDE 105 mmol/L (98-107); CREATININE, SERUM 0.62 mg/dL (0.72-1.25); EST GLOMERULAR FILTRATION RATE > 60 ML/MIN (60-); GLUCOSE 101 mg/dL (74-118); POTASSIUM 3.2 mmol/L (3.5-5.1); SODIUM 137 mmol/L (136-145)
[2019-01-14 06:10] LABS: BUN/CREATININE RATIO 8 (6-25)
--- NOTE | 2019-01-14 07:00 | NUR ---
bedside rounds compelte no distress noted, updated on poc voiced understanding, denies pain at this time, call light in reach will continue monitor
[2019-01-14] MEDS: DICYCLOMINE HCL 20 MG TAB PO SCH ×4 (09:08→21:04)
--- NOTE | 2019-01-14 09:25 | NUR ---
assessment complete no distress noted,updated on poc voiced understanding, denies pain at this time, ivf infusing to rue picc intact, 3 trochar sites to abdomen with stitches noted no other co voiced call light in reach will continue to monitor
[2019-01-14] MEDS ORDERED: POTASSIUM CHLORIDE 20 MEQ TAB CR PO ONE (12:30)
--- NOTE | 2019-01-14 15:17 | Diagnostic Imaging Report ---
Limited soft tissue ultrasound of the right anterior abdominal soft tissues History: Swelling/pain. Comparison: CT abdomen/pelvis 01/10/2019. Technique/findings: Limited ultrasound was performed of the right anterior abdominal wall adjacent to the umbilicus in the area of clinical concern. No sonographic evidence of fluid collection or other abnormality in the area of clinical concern. IMPRESSION: No sonographic correlate in the area of clinical concern in the anterior abdominal wall soft tissues. Signed by: Dr. Mary Juarez MD on 01/14/2019 3:13 PM
--- NOTE | 2019-01-14 15:27 | NUR ---
WOUND CARE PUP SCREEN John Score: 21 PUP: Conservative LOS: 16 Age: 43 [employer] HOB < 30 Degrees Patient Position: OOB / Ambulatory PATIENT VISIT / SKIN CHECK: No Pressure Ulcers Identified. RECOMMENDATION: - Continue Conservative PUP Addendum: 01/14/19 at 1528 by Nitin Ma RN Amended: Links added.
[2019-01-14] MEDS: KCL 20MEQ/.9 SOD CHL 1,000 ML IV SCH (17:02)
--- NOTE | 2019-01-14 19:20 | NUR ---
Bedside report given to oncoming nurse of patient's status. No s/s of acute distress noted.
[2019-01-14] MEDS ORDERED: ACETAMINOPHEN/CODEINE 300MG - 30MG TAB PO PRN (23:15)
--- NOTE | 2019-01-14 23:50 | NUR ---
PATIENT C/O PAIN TO RIGHT ARM AND RADIATE TO SHOULDER AND BACK DUE TO PICC LINE. NOTIFIED DR HAIRSTON. ORDER TO D/C PICC LINE.
[2019-01-15] VITALS: BP 121/66
[2019-01-15] MEDS ORDERED: CHOLESTYRAMINE 4 GM PACKET PO STA (00:05)
[2019-01-15 04:00] VITALS: BP 118/67
--- NOTE | 2019-01-15 06:05 | NUR ---
PATIENT REFUSED TO LET NURSE D/C PICC LINE LAST NIGHT. NOTIFIED MD. DR HAIRSTON SAID PATIENT IS GOING HOME TODAY, D/C PICC LINE NOW.
--- NOTE | 2019-01-15 06:10 | NUR ---
D/C PICC LINE. PRESSURE DRESSING APPLIED. PATIENT TOLERATED WELL
[2019-01-15] MEDS: VANCOMYCIN 250MG/5ML ORAL SOLN PO SCH ×2 (06:22→12:00)
[2019-01-15 08:26] VITALS: BP 119/64
[2019-01-15] MEDS: DICYCLOMINE HCL 20 MG TAB PO SCH ×2 (08:41→13:00)
[2019-01-15] MEDS ORDERED: CHOLESTYRAMINE 4 GM PACKET PO SCH (09:00)
--- NOTE | 2019-01-15 11:51 | Discharge Summary ---
DISCHARGE DIAGNOSES: 1. Community-acquired Clostridium difficile colitis 2. Septic shock. 3.Severe electrolyte imbalance. PROCEDURES PERFORMED DURING THIS HOSPITALIZATION: None. CONSULTATIONS: Infectious Disease, Dr. Mills. Gastroenterology, Dr. Donald Hernandez. HISTORY OF PRESENT ILLNESS AND HOSPITALIZATION COURSE: The patient is a 43-year-old male who had undergone on December 2018 laparoscopic cholecystectomy followed by on December 31, appendectomy who presented to the emergency room at [facility] on 01/10 complaining of severe abdominal pain cramping in nature with severe diarrhea. The patient in the emergency room was found to be dehydrated, acidotic. The patient had a CT scan of the abdomen during admission and colitis was suggested on the basis of the CT scan findings. There was no evidence of intra-abdominal abscess. There was no evidence of fluid collection or obstruction. There was no evidence of any potential complication resulting from the two previous procedures performed by me on the previously described date. The patient because of the dehydration and sepsis was placed in the ICU overnight. He was given intravenous antibiotics and rehydration. The patient stabilized and was later sent to the floor. Dr. Mills was consulted and he managed his antibiotics. He was given throughout this hospitalization IV Flagyl and oral vancomycin. The patient was consulted with Dr. Donald Hernandez who will be following up the patient as an outpatient and will schedule colonoscopy once the acute episode resolves. The diarrhea resolved slowly. The patient had multiple stool studies, all of which were negative. He did have a positive C difficile toxin in the stool for which he was treated along with his sepsis. The patient complained of some periumbilical pain and an ultrasound confirmed the findings of the CT scan, namely no evidence of any acute surgical condition. No evidence of hematoma or fluid collection of the abdominal wall or in the abdomen. He did complain of some pain in the right upper extremity and his PICC line was discontinued the day before discharge. Venous Doppler did not reveal any major clots in the main veins. At the time of discharge, there was absolutely no evidence of any type of phlebitis or venous thrombosis of the right upper extremity and the patient was discharged on vancomycin as per Dr. Mills. He has at this point, no work tolerance. I will see him in my office in a couple of weeks. He will be following up as an outpatient with Dr. Donald Hernandez to schedule a colonoscopy later on once this process has all resolved. MD AHSAN Mccord/LEEANNE /[id number] MTDD
[2019-01-15 12:00] VITALS: BP 116/58
[2019-01-15] MEDS ORDERED: VANCOMYCIN HCL125 MG PO (15:46)
== END 2019-01-15 17:31 | disposition home or self-care (01) | DRG 871 ==
LOC: ER 21:18 → ERHOLD 01-11 02:57 → ICU 01-11 04:20 → MED/SURG2 01-11 16:19
PROVIDERS: ADMIT Surgery; ATTEND Surgery
PROC: 02HV33Z Insertion of Infusion Device into Superior Vena Cava, Percutaneous Approach (ICD-10-PCS; principal; 2019-01-11)
DX: A41.9 Sepsis, unspecified organism (principal); J18.9 Pneumonia, unspecified organism; R65.21 Severe sepsis with septic shock
CPT/HCPCS: 36415; 36569; 71045; 74177; 76705; 80048; 80053; 81001; 82150; 82270; 83605; 83630; 83690; 84132; 85025; 86256; 86671; 87040; 87045; 87086; 87177; 87328; 87390; 87400; 87493; 87536; 93971; 96360; 99284; G0433; G0435; J0692; J2543; J7030; Q9967

== ENCOUNTER → 2019-02-24 | Day surgery (SDC) | payer BC ==
[~2019-02-24] MED LIST changes: +FENTANYL CITRATE/PF 100MCG/2 ML INJ ONE; +HYOSCYAMINE SULFATE 0.5 MG/ML INJ ONE; +LIDOCAINE HCL 2% LOCAL INJ 5 ML SDV VIAL INJ ONE; +MIDAZOLAM HCL 2 MG/2 ML VIAL ONE; +PROPOFOL IV EMULSION 10 MG/ML 50 ML VIAL ONE; +VANCOMYCIN HCL125 MG PO
[2019-02-24 16:55] VITALS: BP 113/72
[2019-02-24 17:16] LABS: WBC,FECAL (FECAL LACTOFERRIN) NEGATIVE (NEGATIVE)
--- NOTE | 2019-02-24 23:53 | Operative Report ---
DATE OF PROCEDURE: 02/24/2019 SURGEON: Donald Hernandez MD PROCEDURE: EGD with biopsies and a colonoscopy with polypectomy and biopsies. REFERRING PHYSICIANS: 1. Isma Rhodes MD. 2. Oseas Reyes MD. 3. Lucina Mills MD. INDICATIONS FOR EGD: Dysphagia, heartburn and indigestion, history of black stools. INDICATIONS FOR COLONOSCOPY: Diarrhea. MEDICATIONS: The patient was done under MAC, please see anesthesiologist's note. PROCEDURE #1: With the patient in left lateral decubitus position, a flexible fiberoptic Olympus gastroscope was introduced into the esophagus under direct visualization without any difficulty. There was some patchy erythema noted in distal esophagus. The scope was then advanced with ease into the stomach. Mucosa overlying the antrum and the body revealed some patchy areas of erythema and [id number] edema and biopsies were obtained and sent to stain for H pylori. There was a minute redness nodule noted in the distal 3rd of the body of the stomach along the anterior wall and that was removed per cold biopsy forceps. An additional minute whitish nodule was noted in the distal body along the greater curvature and that was also removed per cold biopsy forceps. The pylorus was of normal contour and shape, was intubated with ease and the scope was advanced all the way to the second portion of the duodenum. The scope was then withdrawn slowly. Biopsies were obtained from the proximal second portion and a duodenal bulb to rule out sprue. The scope was then withdrawn back into the stomach and retroflexed and mucosa overlying the fundus and the cardia appeared to be within normal limits. The scope was then straightened out, it was subsequently withdrawn. Esophagus was then dilated to size 50-Chinese Hutson. The patient tolerated the procedure well. IMPRESSION: 1. Distal esophagitis, mild. 2. Esophagus dilated to size 50-Chinese Hutson. 3. Gastritis, biopsied. Biopsies sent to stain for H pylori. 4. Minute nodule distal 3rd of the body of the stomach along the anterior wall that was removed per the cold biopsy forceps. 5. Minute whitish nodule distal body greater curvature removed per the cold biopsy forceps. 6. Rule out sprue. PLAN: Follow up histology. Initiate Protonix 40 mg one p.o. q.a.m. a.c. and Carafate 1 g p.o. a.c. t.i.d. and at bedtime. PROCEDURE #2: The patient was then turned around. After adequate lubrication of the anal canal, a flexible fiberoptic Olympus colonoscope was inserted into the rectum with ease and advanced all the way to the cecum. Mucosa overlying the cecum appeared to be within normal limits. The ileocecal valve was intubated and the scope was advanced into the terminal ileum. Biopsies were obtained. The scope was then withdrawn back into the colon. It was then withdrawn slowly and one polyp was removed per snare electrocautery from the proximal ascending colon. The rest of the ascending and the transverse grossly appeared to be within normal limits. One polyp was hot biopsied from the descending colon. The mucosa overlying the distal descending sigmoid and rectum revealed some patchy intense erythema, moderate edema, and friability and random biopsies were obtained. Two polyps were snared from the sigmoid colon. The scope was then retroflexed into the distal rectum and small internal hemorrhoids were noted, none of which was actively bleeding. The scope was then straightened out, it was subsequently withdrawn after securing an adequate stool specimen that was sent for the appropriate stool studies. The patient tolerated the procedure well. IMPRESSION: 1. Ascending colon, polyp snared. 2. Descending colon polyp, hot biopsied. 3. Proctosigmoiditis, random biopsies obtained. 4. Sigmoid colon polyps x2, removed per snare electrocautery. 5. Internal hemorrhoids, none actively bleeding. PLAN: Follow up histology. Follow up stool studies. Initiate Bentyl 20 mg one p.o. t.i.d. and VSL #3 one p.o. q.i.d. Timing of followup colonoscopy, pending pathology report. Donald Hernandez MD [facility] [place] /[id number] cc: MD Isma Mccord MD Zaher Shebib, MD
[2019-02-25 13:33] LABS: C DIFFICILE TOXIN A&B AMP PROB **POSITIVE** (NEGATIVE)
== END | disposition home or self-care (01) ==
LOC: OR 09:57
PROVIDERS: ATTEND Internal Medicine Gastroenterology
DX: K29.50 Unspecified chronic gastritis without bleeding (principal); D12.2 Benign neoplasm of ascending colon; D12.4 Benign neoplasm of descending colon; K52.9 Noninfective gastroenteritis and colitis, unspecified; K31.89 Other diseases of stomach and duodenum; K20.9 Esophagitis, unspecified; K63.89 Other specified diseases of intestine; K64.8 Other hemorrhoids; K21.9 Gastro-esophageal reflux disease without esophagitis; Z21 Asymptomatic human immunodeficiency virus [HIV] infection status; R03.0 Elevated blood-pressure reading, without diagnosis of hypertension; E78.5 Hyperlipidemia, unspecified; Z88.6 Allergy status to analgesic agent; Z68.30 Body mass index [BMI] 30.0-30.9, adult
CPT/HCPCS: 43239; 43450; 45380; 45384; 45385; 83630; 83993; 87045; 87177; 87328; 87493; J1980; J2001; J2250; J2704; 45378

== ENCOUNTER 2021-03-19 12:49 | Emergency (ER) | payer BC, OTHER ==
[~2021-03-19] VITALS: Ht 165.1 cm; Wt 84.4 kg
[~2021-03-19 12:49] MED LIST changes: -FENTANYL CITRATE/PF 100MCG/2 ML INJ ONE; -HYOSCYAMINE SULFATE 0.5 MG/ML INJ ONE; -LIDOCAINE HCL 2% LOCAL INJ 5 ML SDV VIAL INJ ONE; -MIDAZOLAM HCL 2 MG/2 ML VIAL ONE; -PROPOFOL IV EMULSION 10 MG/ML 50 ML VIAL ONE
[2021-03-19] MEDS ORDERED: ASPIRIN 81 MG CHEW TAB PO STA (15:03)
[2021-03-19] MEDS ORDERED: ASPIRIN 81 MG CHEW TAB PO ONE (15:15)
[2021-03-19 15:28] LABS: BASOPHILS % 0.2 % (0.0-1.0); EOSINOPHILS # (AUTO) 0.1 (0.0-0.4); EOSINOPHILS % 0.9 % (0.0-6.0); HEMATOCRIT 43.7 % (38.2-49.6); HEMOGLOBIN 14.5 g/dL (14.0-18.0); LYMPHOCYTES # (AUTO) 2.6 (1.0-3.2); LYMPHOCYTES % 20.1 % (18.0-39.1); MEAN CORPUSCULAR HGB CONC 33.2 g/dL (31-35); MEAN CORPUSCULAR VOLUME 87.4 fL (81-99); NEUTROPHILS # (AUTO) 8.9 (2.1-6.9); NEUTROPHILS % 70.4 % (38.7-80.0); PLATELET COUNT 245 x10e3/uL (140-360); RED CELL DISTRIBUTION WIDTH 12.6 % (11.7-14.4)
[2021-03-19] MEDS ORDERED: LIDOCAINE 4% PATCH TP STA (15:43)
[2021-03-19] MEDS ORDERED: DEXAMETHASONE 4 MG TAB PO STA (15:43)
[2021-03-19] MEDS ORDERED: KETOROLAC TROMETHAMINE 30 MG/ML VIAL IM STA (15:43)
[2021-03-19] MEDS ORDERED: ACETAMINOPHEN 325 MG TAB PO ONE (15:45)
[2021-03-19 15:46] LABS: ALANINE AMINOTRANSFERASE 30 IU/L (0-55); ALBUMIN 4.5 g/dL (3.5-5.0); ALBUMIN/GLOBULIN RATIO 1.3 (0.8-2.0); ALKALINE PHOSPHATASE 67 IU/L (40-150); ANION GAP 12.8 mmol/L (8-16); BLOOD UREA NITROGEN 11 mg/dL (7-26); BUN/CREATININE RATIO 16 (6-25); CALCIUM 8.9 mg/dL (8.4-10.2); CARBON DIOXIDE 25 mmol/L (22-29); CHLORIDE 103 mmol/L (98-107); CREATINE KINASE 101 IU/L (30-200); EST GLOMERULAR FILTRATION RATE 123 ML/MIN (60-); GLUCOSE 86 mg/dL (74-118); POTASSIUM 3.8 mmol/L (3.5-5.1); SODIUM 137 mmol/L (136-145)
[2021-03-19] MEDS ORDERED: LIDOPATCH1 EACH TOP (17:40)
== END 2021-03-19 18:12 | disposition home or self-care (01) ==
LOC: ER 16:33
DX: M54.5 Low back pain (principal); R07.9 Chest pain, unspecified; M25.511 Pain in right shoulder
CPT/HCPCS: 36415; 71045; 80053; 82550; 82553; 83880; 84484; 85025; 93005; 99283; J1885; J8540

== ENCOUNTER 2022-03-22 14:36 | Emergency (ER) | payer BC, OTHER ==
[~2022-03-22] VITALS: Ht 165.1 cm; Wt 84.4 kg
[~2022-03-22 14:36] MED LIST changes: +LIDOPATCH1 EACH TOP
[2022-03-22] MEDS ORDERED: KETOROLAC TROMETHAMINE 30 MG/ML VIAL IV STA (15:15)
[2022-03-22] MEDS ORDERED: SODIUM CHLORIDE 0.9% 1000ML 1,000 ML IV ONE (15:15)
[2022-03-22] MEDS ORDERED: ACETAMINOPHEN 325 MG TAB PO ONE (15:15)
[2022-03-22 16:16] LABS: BASOPHILS % 0.2 % (0.0-1.0); HEMATOCRIT 48.9 % (38.2-49.6); HEMOGLOBIN 15.9 g/dL (14.0-18.0); LYMPHOCYTES # (AUTO) 0.7 (1.0-3.2); LYMPHOCYTES % 7.7 % (18.0-39.1); MEAN CORPUSCULAR HEMOGLOBIN 28.8 pg (28-32); MEAN CORPUSCULAR HGB CONC 32.5 g/dL (31-35); MEAN CORPUSCULAR VOLUME 88.6 fL (81-99); MONOCYTES # (AUTO) 0.7 (0.2-0.8); MONOCYTES % 8.4 % (4.4-11.3); NEUTROPHILS # (AUTO) 7.2 (2.1-6.9); NEUTROPHILS % 83.4 % (38.7-80.0); PLATELET COUNT 212 x10e3/uL (140-360); RED BLOOD COUNT 5.52 x10e6/uL (4.3-5.7); RED CELL DISTRIBUTION WIDTH 12.9 % (11.7-14.4)
[2022-03-22 16:37] LABS: ALBUMIN 4.2 g/dL (3.5-5.0); ANION GAP 17.6 mmol/L (8-16); CALCIUM 8.9 mg/dL (8.4-10.2); CREATININE, SERUM 0.69 mg/dL (0.72-1.25); POTASSIUM 3.6 mmol/L (3.5-5.1)
[2022-03-22 16:46] LABS: CLARITY,URINE CLOUDY (CLEAR); COLOR,URINE AMBER (YELLOW)
[2022-03-22 16:47] LABS: BACTERIA,URINE MANY /HPF; KETONES,URINE 1+ (NEGATIVE); LEUKOCYTE ESTERASE ,URINE NEGATIVE (NEGATIVE); NITRITE,URINE NEGATIVE (NEGATIVE); PROTEIN,URINE DIPSTICK 1+ (NEGATIVE); URINE UROBILINOGEN 1 mg/dL (0.2 - 1)
[2022-03-22 16:48] LABS: AMORPHOUS SEDIMENT,URINE MANY (FEW); EPITHELIAL CELLS,URINE MODERATE /LPF
[2022-03-22] MEDS ORDERED: CEFDINIR300 MG PO (17:14)
[2022-03-22] MEDS ORDERED: IBUPROFEN600 MG PO (17:14)
[2022-03-22 18:18] VITALS: BP 110/73
== END 2022-03-22 17:26 | disposition home or self-care (01) ==
LOC: ER 16:50
DX: A41.9 Sepsis, unspecified organism (principal); N12 Tubulo-interstitial nephritis, not specified as acute or chronic; Z88.6 Allergy status to analgesic agent; Z20.822 Contact with and (suspected) exposure to COVID-19
CPT/HCPCS: 36415; 71045; 74176; 80053; 81001; 83605; 85025; 87040; 87086; 99284; J0696; J1885; J7030; U0002

== ENCOUNTER 2025-06-19 14:03 | Emergency (ER) | payer BC ==
[~2025-06-19] VITALS: Ht 165.1 cm; Wt 86.2 kg
[~2025-06-19 14:03] MED LIST changes: +CEFDINIR300 MG PO; +IBUPROFEN600 MG PO
[2025-06-19 14:11] VITALS: RESP 18; TEMP 98.8
[2025-06-19 14:53] LABS: BASOPHILS % 0.1 % (0.0-1.0); EOSINOPHILS % 1.5 % (0.0-6.0); LYMPHOCYTES % 27.8 % (18.0-39.1); MONOCYTES % 11.1 % (4.4-11.3); NEUTROPHILS % 59.2 % (38.7-80.0); RED CELL DISTRIBUTION WIDTH 12.8 % (11.7-14.4)
[2025-06-19 14:58] LABS: INR 0.93
[2025-06-19 15:00] VITALS: PULSE 86; O2SAT 100
[2025-06-19] MEDS ORDERED: MECLIZINE HCL 12.5 MG TAB ONE (15:01)
[2025-06-19] MEDS: DIAZEPAM 2 MG TAB PO ONE (15:04)
[2025-06-19] MEDS: SODIUM CHLORIDE 0.9% 1000ML 1,000 ML IV STA (15:04)
[2025-06-19] MEDS: ONDANSETRON HCL INJ 2MG/ML 2ML 2 MG/ML VIAL IV STA (15:05)
[2025-06-19] MEDS: MECLIZINE HCL 12.5 MG TAB PO ONE (15:05)
[2025-06-19 15:06] LABS: EST GLOMERULAR FILTRATION RATE 121.0 ML/MIN (>=60)
[2025-06-19] MEDS ORDERED: MECLIZINE HCL12.5 MG PO (16:04)
[2025-06-19] MEDS ORDERED: SODIUM CHLORIDE 0.9% 1000ML 1,000 ML ONE (16:15)
== END 2025-06-19 16:18 | disposition home or self-care (01) ==
LOC: ER 14:46
DX: R20.2 Paresthesia of skin (principal); J32.9 Chronic sinusitis, unspecified; R51.9 Headache, unspecified; R42 Dizziness and giddiness; E78.5 Hyperlipidemia, unspecified; M54.9 Dorsalgia, unspecified; G89.29 Other chronic pain
CPT/HCPCS: 36415; 70450; 71045; 80053; 82550; 83735; 84484; 85025; 85610; 85730; 93005; 99284; J2405; J7030; J8597